=== PATIENT | female | born 1990 | race Two or more races ===

== ENCOUNTER 2016-09-15 20:34 | Emergency (ER) | payer MEDICAID ==
[~2016-09-15 20:34] MED LIST: DAILY MULTIPLE1 EAC1 PO; MIRALAX PACKET17 GM PO; MOTRIN-DPS600 MG PO; OMNICEF DPS300 MG PO; SYNTHROID DPS0.05 MG PO; TYLENOL DPS325 MG PO
--- NOTE | 2016-09-22 01:20 | ER ---
ADMIT: 09/15/2016 RM/LOC: ER [facility] MR#: [id number] [facility] [id number] MABLE [address] [place] [address] Emergency Room Report SEX: F AGE: 26 : 1990 DATE: 09/15/2016 ADDENDUM: CHIEF COMPLAINT: Exposure to Chlamydia. HISTORY OF PRESENT ILLNESS: She says her significant other has Chlamydia. She does not essentially want checked. She just wants treated. I gave her Zithromax and Rocephin here in the emergency room. CLINICAL IMPRESSION: Exposure to Chlamydia. I did tell her if she wants further testing for any other STDs that she needs to follow up with her PCP regarding anything like hepatitis or HIV. EDMOND Farmer / Ambrosio Foster MD / jumana JOB #: [id number] CC: aPramjit Ramirez MD, Attending Physician
== END 2016-09-15 21:25 | disposition home or self-care (01) ==
LOC: ER 20:34
DX: Z20.2 Contact with and (suspected) exposure to infections with a predominantly sexual mode of transmission (principal); E03.9 Hypothyroidism, unspecified; Z79.899 Other long term (current) drug therapy